=== PATIENT | female | born 1990 | race Caucasian/White ===

== ENCOUNTER → 2018-05-07 13:26 | Outpatient (CLI) | payer SELFPAY ==
[2018-05-07 15:45] LABS: Color, Urine Yellow (Yellow); Glucose, Dipstick Normal (Normal); Ketone-Dipstick Negative (Negative); Leukocyte Esterase-Dipstick 25 /ul (Negative); Nitrite-Dipstick Negative (Negative); Occult Blood-Urine Negative /ul (Negative); Protein-Dipstick Negative (Negative); Specific Gravity, Urine 1.025 (1.002-1.030); Urine Bilirubin Dipstick Negative (Negative); Urine Clarity Clear (Clear); Urine Urobilinogen Normal (Normal)
[2018-05-07 15:48] LABS: Absolute Lymphocyte Count 2.39 X10^3/ul (0.83-4.51); Absolute Neutrophil Count 7.1 X10^3/uL (2.0-7.7); Basophil# 0.05 X10^3/uL; Basophil% 0.5 % (0-1); Eosinophil# 0.17 X10^3/uL; Eosinophils% 1.5 % (0-5); Hematocrit 37.5 % (37-47); Hemoglobin 12.7 g/dl (12.0-15.0); Lymphocyte # 2.39 X10^3/ul (4.0); Lymphocyte % 21.6 % (19-41); Mean Corp Hgb Conc 33.9 g/gl (32-36); Mean Corpuscular Hgb 29.6 pg (27.0-32.0); Mean Corpuscular Volume 87.4 fL (81-99); Mean Platelet Vol. 10.7 fl (6.2-12.0); Monocyte% 12.6 % (0-10); Neutrophil # 7.05 X10^3/uL (2.7-7.7); Neutrophil % 63.5 % (47-70); Platelet Count 334 K/mm3 (150-450); RBC Distribution Width CV 13.3 % (11.6-14.6); RBC Distribution Width SD 40.9 fl (35.1-43.9); Red Blood Count 4.29 M/mm3 (4.2-5.4); White Blood Count 11.1 K/mm3 (4.4-11.0)
[2018-05-07 15:52] LABS: POSITIVE COUNT NO; POSITIVE DIFFERENTIAL NO; POSITIVE MORPHOLOGY NO
[2018-05-07 16:06] LABS: Thyroid Stim Hormone (TSH) 6.57 uIU/mL (0.358-3.74)
[2018-05-07 16:45] LABS: HIV - WCH Non-Reactive (Nonreactive); Rubella IgG 130.8 IU/mL
[2018-05-07 18:31] LABS: Chlamydia Trachomatis by PCR Negative (Negative); Neisserai gonorrhoeae by PCR Negative (Negative); Probe Check PASS; Sample Adequacy Control PASS; Specimen Processing Control PASS
[2018-05-09 03:47] LABS: Prenatal RPR NONREACTIVE (NONREACTIVE)
[2018-05-11 20:07] LABS: HEPATITIS B SURFACE AG Confirm. indicated (Negative)
[2018-05-12 10:52] LABS: HBsAg Confirmation Negative (.)
[2018-05-12 10:53] LABS: Hep C Antibodies <0.1 s/co ratio (0.0-0.9)
[2018-05-12 17:33] LABS: Free T3 2.4 pg/mL (2.18-3.98); T4 Free Direct 0.71 ng/dL (0.76-1.46)
== END ==
PROVIDERS: Visit Provider Obstetrics & Gynecology
DX: Z34.81 Encounter for supervision of other normal pregnancy, first trimester (principal); Z12.4 Encounter for screening for malignant neoplasm of cervix; Z11.3 Encounter for screening for infections with a predominantly sexual mode of transmission
CPT/HCPCS: 81002; 84439; 84443; 84481; 85025; 86703; 86762; 86803; 87340; 87491; 87591; 88175; G0145

== ENCOUNTER 2018-11-28 10:15 | Inpatient (IN) | payer SELFPAY ==
[2018-11-20 13:12] VITALS: BMI 29.7
[2018-11-28] VITALS (20 sets, daily range): BP systolic 104–127; BP diastolic 55–79; PULSE 61–88; RESP 14–20; TEMP 36–36.7; O2SAT 97–100; BMI 29.7
[2018-11-28] MEDS: Lactated Ringers 1,000 ML 999 ML IV (10:30)
[2018-11-28 11:07] LABS: Absolute Lymphocyte Count 2.02 X10^3/ul (0.83-4.51); Absolute Neutrophil Count 6.6 X10^3/uL (2.0-7.7); Basophil# 0.02 X10^3/uL; Basophil% 0.2 % (0-1); Eosinophil# 0.11 X10^3/uL; Hematocrit 34.3 % (37-47); Hemoglobin 11.7 g/dl (12.0-15.0); Lymphocyte # 2.02 X10^3/ul (4.0); Lymphocyte % 19.2 % (19-41); Mean Corp Hgb Conc 34.1 g/gl (32-36); Mean Corpuscular Hgb 30.7 pg (27.0-32.0); Monocyte% 15.2 % (0-10); Neutrophil # 6.62 X10^3/uL (2.7-7.7); Neutrophil % 63.2 % (47-70); Platelet Count 240 K/mm3 (150-450); RBC Distribution Width CV 14.9 % (11.6-14.6); RBC Distribution Width SD 48.4 fl (35.1-43.9); Red Blood Count 3.81 M/mm3 (4.2-5.4); White Blood Count 10.5 K/mm3 (4.4-11.0)
[2018-11-28 11:08] LABS: Differential Indicated SCAN CRITERIA MET; POSITIVE COUNT NO; POSITIVE DIFFERENTIAL YES; POSITIVE MORPHOLOGY NO
[2018-11-28] MEDS: Lactated Ringers 1,000 ML 150 ML IV (11:27)
[2018-11-28] MEDS: Sodium Citrate/Citric Acid 30 ML UDC PO (11:49)
[2018-11-28] MEDS: Cefazolin 2 GM in 0.9% Normal Saline 100 ML IV (11:49)
--- NOTE | 2018-11-28 11:56 | PCM.OPRPT ---
Report of Operation Date of Procedure: 11/28/18 Pre-Operative Diagnosis: Prior Post-Operative Diagnosis: Prior , Catie Breech Presentation Surgery/Procedure Performed:: Repeat Low Transverse Cervical Section Description of Surgical Findings:: Viable male in catie breech presentation with clear amniotic fluid and normal three-vessel placenta. Type of Anesthesia:: Spinal - with Duramorph--converted to General Endotracheal Anesthesiologist: Milan Daniels Specimen's removed: Placenta to WP Drains: Oquendo to straight drain Estimated Blood Loss (mL): < 500 cc Fluids Replaced: Crystalloid Description of Procedure: Surgeon: Alex Henry MD, FACOG Sales Recruiting Coordinator: MAYANK Hobbs Indication: This is a 28-year-old who presents for her second at 39+ weeks gestation. care has otherwise been uneventful. The patient has been counseled regarding the risk and indications of this procedure including the possibility of bleeding infection and injury to surrounding structures such as bowel bladder. All questions were answered. Procedure: Patient was taken to the operating room where after spinal anesthesia was placed, the patient was prepped and draped in usual sterile fashion and a Oquendo catheter was placed. The spinal anesthetic did not work so general endotracheal anesthetic was used. After adequate anesthesia, the abdomen was entered through the patient's prior Pfannenstiel incision and peritoneum was entered bluntly. After developing a bladder flap on the lower uterine segment a low transverse incision was made on the uterus and breech was easily delivered onto the operative field the nose mouth and oropharynx were bulb suctioned. Subsequently a viable male was born with Apgars of 9/9. The was noted to cry move all extremities vigorously on the operative field. The umbilical cord was doubly clamped and ligated and infant handed to the nursery personnel who were present for the delivery. Placenta was delivered and noted to be 3 vessels and normal. Uterus was exteriorized and remaining placental tissue was removed. The uterus was then closed in 2 layers first with running locked 0 Vicryl suture followed by a second imbricating layer with 0 Vicryl suture. 0 Vicryl suture was then used in a horizontal mattress interrupted fashion to affect final hemostasis of the uterine incision line. Normal fallopian tubes and ovaries were visualized and the uterus was returned to the pelvis. Hemostasis was noted and rectus abdominis muscles were reapproximated in the midline with interrupted Number 0 Vicryl suture in a horizontal mattress fashion. Fascia was closed with running Number 1 PDS Strata fix suture. Subcutaneous tissue was irrigated with copious amouts of saline solution and then closed with running 3-0 Vicryl suture. Skin was closed with 4-0 monocryl suture in a running subcuticular fashion. Steri strips, telfa, and tape were placed across the incision. The patient tolerated the procedure well and was taken to the recovery room in satisfactory condition. Sponge, needle, and instrument counts were all reportedly correct. EBL was less than 500 cc. Ancef 2 gms IV was given prior to the procedure. Grafts/Implants Used: None - Complications None - Admit VTE Documentation VTE Present on Admission: Yes VTE Mechan Device Prophylaxis: SCD's VTE Pharm Prophylaxis ordered?: No Reason prophylaxis not ordered:: Treatment Not Indicated
--- NOTE | 2018-11-28 12:00 | DCINST_ITS ---
Discharge Diet: No Restrictions Discharge Activity: May not drive while taking narcotic pain medications., May Shower, May Take a Tub Bath May resume sexual activity in: 4-6 weeks Lifting Restrictions: 20 pounds Additional Activity Instructions:: Nothing in the vagina for 4-6 weeks. You may return to work/school in 6 weeks. Call your doctor if your incision/area has: Continuous Slow Oozing, Sudden Increased Bleeding, Increased Pain/ Swelling, Increased Redness, Foul Smelling Discharge Call your doctor if you observe: Fever of 101 or Higher, Inability to urinate, Inability to have a bowel movement, Using more than one pad per hour Additional Instructions: If you experience any of the following, contact your healthcare provider. * Bleeding that soaks a pad every hour for 2 hours * Unrelieved incision or abdominal pain * Swelling, redness, discharge or bleeding from your incision or episiotomy site * Your incision begins to separate * Problems urinating (including inability to urinate or burning while urinating). * Visual changes * Severe headache * Flu-like symptoms * Pain or redness in one of both of your breasts * Pain, warmth, tenderness or swelling in your legs, especially the calf area * Frequent nausea and vomiting * Symptoms of depression or anxiety If you experience any of the following, call 911 or go to the nearest Emergency Room. * Chest pain * Problems breathing * Seizure activity * Partial or complete paralysis of a body part, slurred speech, weakness or drooping of the face, or a sudden inability to walk or hold your balance Allergies/Adverse Reactions: Allergies No Known Allergies Allergy (Verified 11/20/18 13:09) Medications to take at Discharge Ferrous Sulfate [Iron] 325 mg PO DAILY 11/20/18 Levothyroxine [Synthroid] 50 mcg PO DAILY 11/20/18 Vits [Prenatabs FA] 1 tablet PO DAILY 11/20/18 Docusate Sodium [Colace] 100 mg PO BID PRN PRN #60 cap 11/28/18 Oxycodone [Oxyir] 5 mg PO Q6H PRN PRN 7 Days #20 tab 11/28/18 The following prescriptions were given: Oxycodone [Oxyir] 5 mg PO Q6H PRN PRN 7 Days #20 tab PRN Reason: Severe Pain (-09/03) Docusate Sodium [Colace] 100 mg PO BID PRN PRN #60 cap PRN Reason: Constipation Follow-Up: Call to make an appointment with your doctor for an incision check in 1-2 weeks. You will also need a 6 week post- follow up appointment. Test results from this visit will be discussed in further detail at your follow- up appointment, if applicable. Please Follow Up With: Alex Henry MD - [phone] When: Call to make an appointment for an incision check in 2 weeks. Primary Care Physician: Skyler Schwartz MD [Primary Care Provider] -
[2018-11-28] MEDS: Oxytocin 30 units/NS 500 ml 30 UNITS/500 ML IV.SOLN 167 UNITS IV (12:26)
[2018-11-28] MEDS: Ketorolac 30 MG/ML Syringe IV ×2 (12:52→18:00)
[2018-11-28] MEDS: Lactated Ringers 1,000 ML 100 ML IV (13:59)
--- NOTE | 2018-11-28 14:19 | NURSING ---
Cord Blood drawn for genetic testing per pt request. sample given to FOB
[2018-11-28] MEDS: 0.9% Saline Lock 10 ML Syringe IV (18:01)
[2018-11-28] MEDS: Cefazolin 1 GM/50 ML BAG IV (19:55)
[2018-11-29] VITALS (10 sets, daily range): BP systolic 99–115; BP diastolic 56–77; PULSE 70–85; RESP 14–18; TEMP 36.3–36.9; O2SAT 97–99
[2018-11-29] MEDS: Ketorolac 30 MG/ML Syringe IV ×4 (00:24→18:15)
[2018-11-29] MEDS: Lactated Ringers 1,000 ML 100 ML IV (00:24)
[2018-11-29] MEDS: Cefazolin 1 GM/50 ML BAG IV (04:01)
[2018-11-29] MEDS: Levothyroxine 50 MCG Tablet PO (05:49)
[2018-11-29 06:16] LABS: Hematocrit 27.4 % (37-47); Mean Corp Hgb Conc 32.8 g/gl (32-36); Mean Corpuscular Hgb 30.4 pg (27.0-32.0); Mean Corpuscular Volume 92.6 fL (81-99); Mean Platelet Vol. 10.1 fl (6.2-12.0); Platelet Count 239 K/mm3 (150-450); RBC Distribution Width CV 14.9 % (11.6-14.6); RBC Distribution Width SD 48.6 fl (35.1-43.9); Red Blood Count 2.96 M/mm3 (4.2-5.4); White Blood Count 15.2 K/mm3 (4.4-11.0)
[2018-11-29 06:22] LABS: Scan Indicated on CBC? Y/N NO
[2018-11-29] MEDS: 0.9% Saline Lock 10 ML Syringe IV ×3 (10:29→18:15)
--- NOTE | 2018-11-29 11:30 | PCM.PN.OB ---
Subjective: Patient without complaints. Tolerating diet well. Positive flatus. Pain well controlled. - Physical Exam Vital Signs Temp Pulse Resp BP Pulse Ox 98.4 F 74 18 107/56 L 99 11/29/18 08:00 11/29/18 08:00 11/29/18 10:27 11/29/18 08:00 11/29/18 10:27 Oxygen Delivery Method Room Air Weight: 167 lb 12.8 oz Body Mass Index (BMI) 29.7 Intake and Output for Last 24 Hours 11/27/18 11/28/18 11/29/18 23:59 23:59 23:59 Intake Total 4211 / 4211 1155 / 1155 Output Total 1600 / 1600 600 / 600 Balance 2611 / 2611 555 / 555 Laboratory Tests Past 24 Hrs 11/28/18 11/29/18 10:45 06:00 WBC 15.2 H RBC 2.96 L Hgb 9.0 L Hct 27.4 L MCV 92.6 MCH 30.4 MCHC 32.8 RDW 14.9 H RDW Differential 48.6 H Plt Count 239 MPV 10.1 Blood Type A POSITIVE Antibody Screen NEGATIVE Wound is clean, dry, intact. Good urine output. Hemoglobin okay. Medical Necessity - Tobacco Use Smoking Status: Never smoker Assessment/Plan Doing well postoperative day #1 status post repeat . Continuing present care.
--- NOTE | 2018-11-29 13:30 | NURSING ---
Report given to Dinorah Martin RN. She will assume care of patient at this time.
[2018-11-29] MEDS: oxyCODONE 5 MG Tablet PO (13:52)
[2018-11-29] MEDS: Acetaminophen 500 MG Tablet 1000 MG PO (18:21)
[2018-11-30] MEDS: Ketorolac 30 MG/ML Syringe IV ×2 (00:30→06:17)
[2018-11-30 03:03] VITALS: BP 119/75; PULSE 74; RESP 14; TEMP 37; O2SAT 97
[2018-11-30] MEDS: Levothyroxine 50 MCG Tablet PO (07:19)
[2018-11-30 07:23] VITALS: BP 108/67; PULSE 75; RESP 16; TEMP 36.2; O2SAT 97
--- NOTE | 2018-11-30 09:01 | PCM.PN.OB ---
Subjective: Patient without complaints. Tolerating diet well. Minimal vaginal eating. Pain well controlled. - Physical Exam Vital Signs Temp Pulse Resp BP Pulse Ox 97.1 F L 75 16 108/67 97 11/30/18 07:23 11/30/18 07:23 11/30/18 07:23 11/30/18 07:23 11/30/18 07:23 Oxygen Delivery Method Room Air Weight: 167 lb 12.8 oz Body Mass Index (BMI) 29.7 Intake and Output for Last 24 Hours 11/28/18 11/29/18 11/30/18 23:59 23:59 23:59 Intake Total 4211 / 4211 1155 / 1155 Output Total 1600 / 1600 1300 / 1300 Balance 2611 / 2611 -145 / -145 Wound is clean, dry, intact. Good urine output. Medical Necessity - Tobacco Use Smoking Status: Never smoker Assessment/Plan Doing well post operative day #2 status post repeat . Will release to home with routine instructions.
[2018-11-30] MEDS: oxyCODONE 5 MG Tablet PO (12:33)
[2018-11-30 12:38] VITALS: BP 109/73; PULSE 80; RESP 16; TEMP 36.7; O2SAT 98
== END 2018-11-30 14:05 | disposition home or self-care (01) | DRG 788 ==
PROVIDERS: Admitting Provider Obstetrics & Gynecology; Family Provider Family Medicine; PCP Family Medicine; Referring Provider Obstetrics & Gynecology; Visit Provider Obstetrics & Gynecology
PROC: 10D00Z1 Extraction of Products of Conception, Low, Open Approach (ICD-10-PCS; CPT 59514; principal; 2018-11-28 11:45)
DX: O34.211 Maternal care for low transverse scar from previous cesarean delivery (principal); O32.1XX0 Maternal care for breech presentation, not applicable or unspecified; Q51.3 Bicornate uterus; O34.03 Maternal care for unspecified congenital malformation of uterus, third trimester; O99.02 Anemia complicating childbirth; D64.9 Anemia, unspecified; O99.284 Endocrine, nutritional and metabolic diseases complicating childbirth; E03.9 Hypothyroidism, unspecified; Z3A.39 39 weeks gestation of pregnancy; Z37.0 Single live birth
CPT/HCPCS: 85025; 85027; 86850; 86900; 99218; J7120; A4216; G0378; J2405